=== PATIENT | male | born 1945 | race Caucasian/White ===

== ENCOUNTER 2021-11-30 12:30 | Inpatient (IN) | payer MEDICARE, BC, SELFPAY ==
[2021-11-30] VITALS (8 sets, daily range): BP systolic 134–170; BP diastolic 83–125; PULSE 84–121; RESP 18–20; TEMP 36.6; O2SAT 96–99; BMI 31.0; BMI 32.2
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
[2021-11-30] MEDS: MORPHINE 4 MG/ML INJ IVP (13:43)
[2021-11-30] MEDS: ONDANSETRON 2 MG/ML inj 4 MG IVP (13:43)
[2021-11-30] MEDS: 0.9 % SODIUM CHLORIDE 1000 ml 1,000 ML IV (13:44)
[2021-11-30 13:52] LABS: Basophils Percent Auto 0.1 % (0.0-3.0); Eosinophils Percent Auto 0.1 % (0.0-7.0); Hematocrit 48.2 % (37.0-53.0); Hemoglobin* 15.7 gm/dL (13.5-17.5); Immature Granulocytes Abs Auto 0.03 K/uL (0.00-0.30); Lymphocytes Percent Auto 4.1 % (20-44); Mean Corpuscular HGB Conc 33 gm/dL (32-36); Mean Corpuscular Hemoglobin 30 pg (26-34); Mean Corpuscular Volume 92 fL (80-100); Neutrophils Percent Auto 88.5 % (42.0-72.0); Platelet Count* 203 K/uL (140-440); RDW Coefficient of Variation % 13.4 % (11.5-15.5); Red Blood Count 5.22 m/uL (4.30-5.90); White Blood Count* 14.81 K/uL (4.50-11.00)
[2021-11-30 13:54] LABS: Slide Review Reflex No
[2021-11-30 14:05] LABS: Albumin* 4.9 g/dL (3.3-5.0); Chloride* 96 mmol/L (96-114)
[2021-11-30 14:06] LABS: Potassium* 3.9 mmol/L (3.6-5.1); Sodium* 137 mmol/L (135-149)
[2021-11-30 14:08] LABS: Amylase* 101 U/L (18-89)
[2021-11-30 14:09] LABS: Alanine Aminotransferase* 27 U/L (4-50); Alkaline Phosphatase* 113 U/L (40-150); Aspartate Amino Transferase* 38 U/L (12-35); Bilirubin Total* 1.8 mg/dL (0.1-1.5); Blood Urea Nitrogen* 20 mg/dL (7-30); Calcium* 8.8 mg/dL (8.4-10.6); Carbon Dioxide* 27 mmol/L (20-32); Creatinine* 0.8 mg/dL (0.5-1.5); Estimated Glomerular Filt Rate 91 ml/min; Glucose* 126 mg/dL (60-115); Lipase* 55 U/L (23-300); Total Protein* 8.6 g/dL (6.0-8.3)
[2021-11-30 14:11] LABS: C Reactive Protein* 1.2 mg/dL (0.5-1.0)
--- NOTE | 2021-11-30 14:17 | CRLHL7_ITS ---
For Patients: As a result of the 21st Century Cures Act, medical imaging exams and procedure reports are released immediately into your electronic medical record. You may view this report before your referring provider. If you have questions, please contact your health care provider. 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 Technique: Volumetric multidetector CT images of the chest, abdomen, and pelvis were obtained after the administration of intravenous contrast. 117 cc Isovue 370 low osmolar intravenous contrast Comparison: None available. FINDINGS: CHEST The thoracic inlet is unremarkable. The thyroid gland is within normal limits. The thoracic aorta is nonaneurysmal. There is no filling defect to suggest pulmonary embolus. There is no mediastinal, hilar, or axillary adenopathy. There is a markedly elevated right hemidiaphragm with right basilar pleural effusion with [id number] bronchial thickening of the lower lobe bronchi with basilar atelectasis and parenchymal scar. There is no other dense consolidation or pneumothorax. The thoracic osseus structures are intact without fracture, lytic, or blastic lesion. The thoracic vertebral body heights are grossly maintained with moderate degenerative disc disease change in flowing osteophyte formation. There is demonstration of somewhat lytic appearance of the posterior aspect of the T7 vertebral body. ABDOMEN AND PELVIS The liver is mildly enlarged with minimal hepatic steatosis and heterogeneous attenuation. The spleen is normal in attenuation and size. The gallbladder demonstrates calcified gallstones within the gallbladder lumen. There is no intrahepatic or common ductal dilatation. There is a duodenal diverticulum arising from the 1st portion of the duodenum. The pancreas is normal in enhancement without significant atrophy. The adrenal glands are unremarkable without evidence of adenoma. Cystic changes of the right kidney are appreciated otherwise there is preserved corticomedullary differentiation without evidence of obstructive uropathy. There is a moderate diffuse amount of intracolonic stool. There is moderate distal colonic diverticulosis. The appendix is unremarkable without significant inflammatory change. The abdominal aorta is nonaneurysmal with no significant atherosclerotic disease. There is a diminutive appearing bladder with mild nonspecific bladder wall thickening. There is moderate prostatomegaly. There is no pathologically enlarged epigastric, mesenteric, retroperitoneal, or pelvic sidewall lymph node. The anterior abdominal wall is grossly intact without significant hernias. There is no free air or free fluid. Old traumatic changes of the right superior inferior pubic rami appreciated. Moderate degenerative changes of the bilateral hips and sacroiliac joints. The lumbar vertebral body heights are grossly maintained with endplate Schmorl`s defects and minimal anterolisthesis of L4 on L5. There is moderate to severe degenerative disc disease with disc height loss and marginal osteophyte formation. There is severe facet arthrosis. There is minimal levocurvature of the AP alignment. Impression: 1. Markedly elevated right hemidiaphragm with basilar atelectasis and minimal pleural fluid. There is likely minimal parenchymal scar without dense consolidation or effusion. 2. There is demonstration of multiple calcified gallstones within the gallbladder with somewhat heterogeneous attenuation of the liver likely representing hepatic steatosis and cholelithiasis. 3. Moderate to severe stool seen throughout the colon with distal colonic diverticulosis without evidence of diverticulitis. 4. Moderate to severe degenerative changes of the thoracolumbar spine with demonstration of a lytic focus within the T7 vertebral body. Consider additional follow-up with MRI of the thoracic spine if there is concern for developing metastatic focus. No other significant lytic lesions are appreciated. Please note that all CT scans at this facility use dose modulation, iterative reconstruction, and/or weight-based dosing when appropriate to reduce radiation dose to as low as reasonably achievable. Dictated by Collin De Paz MD @ 11/30/2021 4:01:18 PM (Electronically Signed)
[2021-11-30 14:59] LABS: Appearance Urine Clear (Clear); Bilirubin Urine Negative (Negative); Blood Urine Negative (Negative); Color Urine Yellow (Yellow); Glucose Urine Negative (Negative); Ketones Urine Negative (Negative); Leukocyte Esterase Urine Negative (Negative); Nitrite Urine Negative (Negative); Protein Urine 2+ (Negative); Specific Gravity Urine >= 1.030 (1.000-1.030); Urobilinogen Urine 0.2 (0.2-1.0)
[2021-11-30 15:24] LABS: Bacteria Urine Few; RBC Urine 0-2 (0-2); WBC Urine 0-2 (0-5)
--- NOTE | 2021-11-30 16:38 | CRLHL7_ITS ---
For Patients: As a result of the Century Cures Act, medical imaging exams and procedure reports are released immediately into your electronic medical record. You may view this report before your referring provider. If you have questions, please contact your health care provider. INDICATION: Gallstones. TECHNIQUE: Ultrasound abdomen limited. COMPARISON: CT of the abdomen and pelvis from the same day. FINDINGS: Gallbladder: Contains multiple large, partially calcified stones. There is a focal area of somewhat fusiform wall thickening in the fundus measuring 1.7 by 0.9 x 2.7 cm. This portion of the wall demonstrates internal vascular flow. There is a small amount of pericholecystic fluid. Common bile duct: 6 mm. IMPRESSION: Cholelithiasis without convincing evidence for cholecystitis. 2.7 cm fusiform area of gallbladder wall thickening with internal vascular flow. No definite CT correlate. A gallbladder mass/malignancy cannot be entirely excluded. Recommend MRI for further evaluation or short interval follow-up with ultrasound to evaluate for persistence/interval change. Dictated by Tonio Buckner MD @ 11/30/2021 5:46:34 PM (Electronically Signed)
[2021-11-30 16:53] LABS: Bilirubin Direct* 0.4 mg/dL (0.0-0.5)
[2021-11-30] MEDS: HYDROmorphone 0.5 mg/0.5 ml inj IVP (18:35)
--- NOTE | 2021-11-30 19:15 | ED.NURSE ---
pt swabbed for covid
[2021-11-30 19:53] LABS: SARS PCR* Negative SARS-CoV-2 (Negative)
[2021-11-30] MEDS: PIPERACILLIN/TAZOBACTAM 3.375 GM in 0.9 % SODIUM CHLORIDE Mini-bag 100 ML IVPB (19:59)
[2021-11-30 20:01] LABS: HCO3 VBG 28 mmol/L (21-28); PCO2 VBG 46 mmHG (40-50); PO2 VBG 43.5 mmHG (25-47); pH VBG 7.401 (7.32-7.43)
--- NOTE | 2021-11-30 20:54 | ED.NURSE ---
report given, pt transferring to room 256 via wheelchair with belongings.
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
[2021-11-30 23:03] LABS: Prothrombin Time 14.9 Seconds
[2021-11-30 23:22] LABS: NT Pro B Type NatriureticPept* 1330 PG/mL (0-450)
[2021-11-30 23:25] LABS: Troponin I* 0.04 ng/mL (0.01-0.04)
[2021-11-30 23:29] LABS: Procalcitonin* 0.34 ng/mL (<0.50)
--- NOTE | 2021-11-30 23:42 | PC.NURSE ---
Shift Note: Pt a/o and able to verbalize needs. Moving independently throughout room. Currently rates pain 2/10 to abdomen. 5/10 to neck/low back. Pt wears cervical collar regularly to manage his spinal stenosis per his report. BP's hypertensive. EKG= A-fib with RVR, HR as high as 121 but mostly 95-105 BPM. Orthostatics obtained and tele= A-fib at this time. Pt sipping clears and will be NPO at midnight. Karen at bedside and plans to arrive around 7am tomorrow morning.
[2021-11-30] MEDS: 5 % DEXTROSE IN LAC RINGER'S 1,000 ML 125 ML IV (23:48)
[2021-12-01] VITALS (9 sets, daily range): BP systolic 121–149; BP diastolic 76–99; PULSE 82–98; RESP 12–18; TEMP 36.5–37.3; O2SAT 90–96
--- NOTE | 2021-12-01 | CRLHL7_ITS ---
For Patients: As a result of the Century Cures Act, medical imaging exams and procedure reports are released immediately into your electronic medical record. You may view this report before your referring provider. If you have questions, please contact your health care provider. Indication: Thoracic lesion evaluation. Technique: Multiplanar, multisequence MRI of the thoracic spine was performed without and with the use of 15 cc Dotarem intravenous contrast. Comparison: CT chest abdomen pelvis 11/30/2021. Findings: The thoracic vertebral body heights are maintained without evidence of fracture. Mild multilevel disc height loss and desiccation. No significant spondylolisthesis. Lesion identified within the T7 vertebral body demonstrates intrinsic T1 hyperintensity with fat suppression and is compatible with a hemangioma. There is no discrete T1 hypointense marrow infiltrating process identified. No abnormal enhancement. No abnormal cord signal. Mild multilevel spondylosis, with small disc protrusions at the T7-8, T8-9 and T10-11 levels. No overt evidence of spinal canal or neuroforaminal compromise throughout the thoracic spine. Partially visualized at least moderate spondylosis of the cervical spine. Small right pleural effusion. Cholelithiasis. Impression: 1. 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 No findings to suggest metastases within the thoracic spine. 2. Mild multilevel spondylosis. 3. No abnormal cord signal. Dictated by Khang Esparza MD @ 12/01/2021 12:57:45 PM (Electronically Signed)
--- NOTE | 2021-12-01 | CRLHL7_ITS ---
For Patients: As a result of the Century Cures Act, medical imaging exams and procedure reports are released immediately into your electronic medical record. You may view this report before your referring provider. If you have questions, please contact your health care provider. Indication: Acute cholecystitis. History of diaphragmatic hernia. Technique: MRI and MRCP of the abdomen without IV contrast. Comparison: Abdominal ultrasound 11/30/2021. CT chest, abdomen, pelvis 11/30/2021. Findings: Marked elevation of the right hemidiaphragm. Non cirrhotic configuration of liver. No significant hepatic steatosis. The unenhanced spleen and adrenal glands are normal in appearance. The gallbladder is located posterior to the liver and contains a few large gallstones, one of which is located in the gallbladder neck. There is lentiform T2 intermediate signal along the wall of the gallbladder fundus which could represent focal wall thickening or adherent sludge (series 7, image 15). This is incompletely characterized without IV contrast. Small amount of free fluid about the gallbladder and liver suggesting inflammation. No intra or extrahepatic bile duct dilation. The common bile duct measures up to 5 mm in diameter. No intraductal filling defects identified. Mild diffuse pancreatic parenchymal atrophy. There appears to be pancreatic divisum morphology. No dilation of the pancreatic duct. 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 No hydronephrosis. Right renal cyst. No bowel dilation. Duodenal diverticulum. Colonic diverticulosis. Small amount of free fluid in the right paracolic gutter. No lymphadenopathy. Tiny right pleural effusion. Impression: 1. Few large gallstones, one of which is located in the gallbladder neck. Small amount of free fluid about the gallbladder and liver could be due to gallbladder inflammation. 2. Lentiform T2 intermediate signal along the wall of the gallbladder fundus is indeterminate but could represent focal wall thickening or adherent sludge. 3. No biliary dilation or intraductal filling defects. 4. 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 Consider MRI follow-up in 1 year to ensure stability. Incidentally noted pancreatic divisum morphology. Dictated by Amita Keith MD @ 12/01/2021 10:40:59 AM (Electronically Signed)
[2021-12-01] MEDS: ACETAMINOPHEN 325 MG TABLET PO ×2 (00:12→16:30)
[2021-12-01] MEDS: PIPERACILLIN/TAZOBACTAM 3.375 GM in 0.9 % SODIUM CHLORIDE Mini-bag 100 ML IVPB ×4 (00:30→18:55)
[2021-12-01] MEDS: HYDROmorphone 0.5 mg/0.5 ml inj IVP ×5 (03:38→23:03)
--- NOTE | 2021-12-01 06:06 | PC.NURSE ---
Addendum entered by Lyndsey Burris RN 12/01/21 06:53: pt states he typically takes two 325mg Aspirins a night for back pain, pt had requested this at - MD updated - opted for Tylenol d/t pos surgery. Original Note: : pt pleasant and cooperative. SBA to assist with IV pole. Pt seems to have anxiety, asking several questions regarding pain mgmt, abx, afib, and pos surgery. All questions answered appropriately and pt very appreciative of cares. Pain in abd increased to a 5/10, pt stating the Tylenol didn?t offer much relief, 0.5mg Dilaudid administered with relief. Tele = Afib. HR 80s-105. O2 88-92 when asleep.
[2021-12-01] MEDS: 0.9 % SODIUM CHLORIDE 250 ml IV (06:14)
[2021-12-01 06:33] LABS: Hematocrit 44.9 % (37.0-53.0); Hemoglobin* 14.5 gm/dL (13.5-17.5); Mean Corpuscular HGB Conc 32 gm/dL (32-36); Mean Corpuscular Hemoglobin 30 pg (26-34); Mean Corpuscular Volume 94 fL (80-100); Platelet Count* 181 K/uL (140-440); Red Blood Count 4.79 m/uL (4.30-5.90); White Blood Count* 14.24 K/uL (4.50-11.00)
[2021-12-01 06:34] LABS: HCO3 VBG 31 mmol/L (21-28); PCO2 VBG 57 mmHG (40-50); PO2 VBG 32.3 mmHG (25-47); pH VBG 7.346 (7.32-7.43)
[2021-12-01 06:38] LABS: Slide Review Reflex No
[2021-12-01 07:19] LABS: Albumin* 4.1 g/dL (3.3-5.0); Chloride* 99 mmol/L (96-114); Sodium* 136 mmol/L (135-149)
[2021-12-01 07:21] LABS: Amylase* 76 U/L (18-89); Creatinine* 0.9 mg/dL (0.5-1.5); Estimated Glomerular Filt Rate 87 ml/min
[2021-12-01 07:22] LABS: Alanine Aminotransferase* 27 U/L (4-50); Alkaline Phosphatase* 96 U/L (40-150); Aspartate Amino Transferase* 38 U/L (12-35); Bilirubin Total* 2.5 mg/dL (0.1-1.5); Blood Urea Nitrogen* 17 mg/dL (7-30); Calcium* 8.1 mg/dL (8.4-10.6); Carbon Dioxide* 28 mmol/L (20-32); Gamma Glutamyl Transpeptidase* 55 U/L (8-55); Glucose* 126 mg/dL (60-115); Lipase* 30 U/L (23-300); Magnesium* 1.9 mg/dL (1.5-2.6); Total Protein* 7.1 g/dL (6.0-8.3)
[2021-12-01 07:25] LABS: C Reactive Protein* 6.6 mg/dL (0.5-1.0)
[2021-12-01] MEDS: DOCUSATE SODIUM 100 MG CAPSULE PO (10:04)
[2021-12-01] MEDS: 5 % DEXTROSE IN LAC RINGER'S 1,000 ML 125 ML IV ×2 (10:05→23:32)
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
[2021-12-01 13:24] LABS: Bilirubin Direct* 0.4 mg/dL (0.0-0.5)
--- NOTE | 2021-12-01 13:52 | PC.NURSE ---
End of shift report: Patient is up with stand by assist to the bathroom. Patient is alert and oriented but does fall asleep during conversations when IV dilaudid is onboard. Encouraged patient to take Tylenol inbetween but patient refused this as it does nothing for him. Prefers IV Dilaudid for abdominal pain. Patient had MRI of abdomen and thoracic spine today. Patient also had a bedside echo for new onset of afib in the ER yesterday. Patient continues to be in afib but rate controlled. PIV in left AC is patent. Offered to change IV to a different spot but patient refused and will try and keep arm straight. Dr. Monreal from surgery consulted for surgery but as of now we will continue IV antibiotics and attempt to transfer to a tertiary center for surgery. Patient is pleasant, has a lot of valid questions. Urine is dark and concentrated. Fluids running at 125ml/hr. Patient felt that he was not emptying bladder and a post void bladder scan revealed 5cc. MD was updated on this and will continue to do strict I&Os. Vital signs within normal limits but does dip into the 80s for sats when sleeping. Last BM was yesterday per patient but CT suggests that he has stool in his colon. Docusate sodium was given this morning. R side lower lung sounds are absent due to hx of right diaphragm hernia, otherwise clear to auscultate. TEDs and SCDs are on. Discoloration in lower extremities due to venous insufficiency.
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
[2021-12-01 21:38] LABS: RBC Urine 0-2 (0-2); Squamous Epithelial Cell Urine Few (None-Few); WBC Urine 0-2 (0-5)
[2021-12-01 21:39] LABS: Uric Acid Crystals Urine Many
--- NOTE | 2021-12-01 22:38 | PC.NURSE ---
End of Shift: Patient pleasant and cooperative. Patient vitally stable, right lower lobe diminished, O2 sats in low 90's, BS WNL, IV running D5LR at 125. Patient NPO taking in ice chips. Patient urinated x2 this shift and no success with BM. Patient rates pain at most 4/10, tylenol and 0.5mg of Dilaudid given once. Patient SBA to toilet. Patient reported burning with urination, UA collected.
[2021-12-02] VITALS (10 sets, daily range): BP systolic 125–139; BP diastolic 79–99; PULSE 78–94; RESP 16–20; TEMP 36.5–36.7; O2SAT 93–99
[2021-12-02] MEDS: PIPERACILLIN/TAZOBACTAM 3.375 GM in 0.9 % SODIUM CHLORIDE Mini-bag 100 ML IVPB ×4 (00:56→18:54)
[2021-12-02] MEDS: HYDROmorphone 0.5 mg/0.5 ml inj IVP (03:06)
--- NOTE | 2021-12-02 06:17 | PC.NURSE ---
[id number]: patient SBA, pain well controlled with PRN meds NPO with ice chips. no c/o nausea.
[2021-12-02 06:45] LABS: HCO3 VBG 33 mmol/L (21-28); PO2 VBG 25.3 mmHG (25-47); pH VBG 7.313 (7.32-7.43)
[2021-12-02 06:50] LABS: Hematocrit 44.2 % (37.0-53.0); Hemoglobin* 14.2 gm/dL (13.5-17.5); Mean Corpuscular HGB Conc 32 gm/dL (32-36); Mean Corpuscular Hemoglobin 31 pg (26-34); Mean Corpuscular Volume 95 fL (80-100); Platelet Count* 162 K/uL (140-440); Red Blood Count 4.66 m/uL (4.30-5.90); White Blood Count* 12.53 K/uL (4.50-11.00)
[2021-12-02 06:51] LABS: PCO2 VBG 65 mmHG (40-50)
[2021-12-02] MEDS: 0.9 % SODIUM CHLORIDE 250 ml IV (06:55)
[2021-12-02 06:57] LABS: Slide Review Reflex No
[2021-12-02 07:38] LABS: Chloride* 99 mmol/L (96-114)
[2021-12-02 07:39] LABS: Sodium* 138 mmol/L (135-149)
[2021-12-02 07:41] LABS: Creatinine* 0.9 mg/dL (0.5-1.5); Estimated Glomerular Filt Rate 87 ml/min
[2021-12-02 07:42] LABS: Alanine Aminotransferase* 25 U/L (4-50); Alkaline Phosphatase* 96 U/L (40-150); Aspartate Amino Transferase* 34 U/L (12-35); Bilirubin Total* 2.4 mg/dL (0.1-1.5); Blood Urea Nitrogen* 19 mg/dL (7-30); Calcium* 8.1 mg/dL (8.4-10.6); Carbon Dioxide* 31 mmol/L (20-32); Gamma Glutamyl Transpeptidase* 58 U/L (8-55); Glucose* 124 mg/dL (60-115); Total Protein* 7.2 g/dL (6.0-8.3)
[2021-12-02 08:04] LABS: C Reactive Protein* 16.3 mg/dL (0.5-1.0)
--- NOTE | 2021-12-02 09:21 | PM.GSPN ---
Subjective Subjective Date Seen: 12/02/21 Interval history: Patient is doing better today. He stretched out his IV Dilaudid. He denies any nausea vomiting. He has been passing gas but no bowel movement. Exam Narrative: Exam Narrative: Abdomen is soft, not distended, minimally tender in the posterior right superior flank. No peritoneal signs. Const: Vital Signs, click to edit/add: Vital Signs - 24 hr 12/01/21 10:44 12/01/21 13:03 12/01/21 15:00 Temperature 98.0 F Pulse Rate 84 Pulse Rate [Left A pical] 98 96 Respiratory Rate 16 14 Blood Pressure [Le ft Arm] Blood Pressure [Ri ght Arm] 121/76 Pulse Oximetry 91 Oxygen Delivery Me thod Room Air Oxygen Flow Rate 12/01/21 15:00 12/01/21 18:00 12/01/21 19:00 Temperature 99.1 F 98.6 F Pulse Rate 86 Pulse Rate [Left A pical] 96 84 Respiratory Rate 14 12 Blood Pressure [Le ft Arm] 149/99 H 130/88 Blood Pressure [Ri ght Arm] Pulse Oximetry 92 90 Oxygen Delivery Me thod Room Air Room Air Oxygen Flow Rate 12/01/21 21:48 12/01/21 23:00 12/01/21 23:00 Temperature 98 F Pulse Rate Pulse Rate [Left A pical] 89 89 Respiratory Rate 12 12 Blood Pressure [Le ft Arm] 128/89 Blood Pressure [Ri ght Arm] Pulse Oximetry 90 96 Oxygen Delivery Me thod Nasal Cannula Oxygen Flow Rate 1 12/02/21 01:32 12/02/21 03:00 12/02/21 07:30 Temperature 98 F Pulse Rate 94 85 Pulse Rate [Left A pical] 89 Respiratory Rate 16 Blood Pressure [Le ft Arm] 138/88 Blood Pressure [Ri ght Arm] Pulse Oximetry 93 Oxygen Delivery Me thod Room Air Oxygen Flow Rate Progress Note: A&P Assessment and plan (1) Cholelithiasis: Status: Acute Assessment and Plan: 76-year-old male admitted to the hospital with abdominal pain that is due to symptomatic cholelithiasis and most likely acute cholecystitis. We managing this patient with conservative approach since he is not able to get his gallbladder out at our hospital. Patient is doing well. His WBC decreased to 12 today. We will continue antibiotics. We will advance his diet to clears and see how he tolerates it. Will also place him on laxatives. Will transition him to p.o. pain medication.
[2021-12-02] MEDS: DOCUSATE SODIUM 100 MG CAPSULE PO ×2 (10:16→16:48)
[2021-12-02] MEDS: polyethylene glycoL 3350 17 GM PACK PO (10:16)
[2021-12-02] MEDS: 5 % DEXTROSE IN LAC RINGER'S 1,000 ML 125 ML IV ×3 (10:19→22:55)
[2021-12-02 13:38] LABS: Bilirubin Direct* 0.6 mg/dL (0.0-0.5)
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
[2021-12-03] VITALS (9 sets, daily range): BP systolic 120–148; BP diastolic 75–102; PULSE 83–96; RESP 20; TEMP 36.6–37; O2SAT 92–94
[2021-12-03] MEDS: PIPERACILLIN/TAZOBACTAM 3.375 GM in 0.9 % SODIUM CHLORIDE Mini-bag 100 ML IVPB ×4 (01:06→17:40)
[2021-12-03] MEDS: HYDROmorphone 0.5 mg/0.5 ml inj IVP (02:29)
--- NOTE | 2021-12-03 06:07 | PC.NURSE ---
[id number]: Patient cooperative with cares and talkative. Rates pain 2-4/10. PRN Tylenol 3 x2 and Dilaudid x1 administered for relief. Passing gas and belching. Tolerating clears. Denies N/V. BS active. Patients TEDS from home removed at [facility] per patient request.
[2021-12-03] MEDS: 0.9 % SODIUM CHLORIDE 250 ml IV (06:35)
[2021-12-03 06:55] LABS: HCO3 VBG 33 mmol/L (21-28); PCO2 VBG 59 mmHG (40-50); PO2 VBG 31.4 mmHG (25-47); pH VBG 7.358 (7.32-7.43)
[2021-12-03 07:07] LABS: Hemoglobin* 12.9 gm/dL (13.5-17.5); Mean Corpuscular HGB Conc 32 gm/dL (32-36); Mean Corpuscular Hemoglobin 30 pg (26-34); Mean Corpuscular Volume 96 fL (80-100); Platelet Count* 163 K/uL (140-440); Red Blood Count 4.28 m/uL (4.30-5.90); White Blood Count* 9.81 K/uL (4.50-11.00)
[2021-12-03 07:09] LABS: Slide Review Reflex No
[2021-12-03 07:19] LABS: Albumin* 3.6 g/dL (3.3-5.0); Chloride* 99 mmol/L (96-114); Sodium* 138 mmol/L (135-149)
[2021-12-03 07:20] LABS: Potassium* 3.9 mmol/L (3.6-5.1)
[2021-12-03 07:22] LABS: Bilirubin Total* 2.5 mg/dL (0.1-1.5); Carbon Dioxide* 31 mmol/L (20-32); Creatinine* 0.8 mg/dL (0.5-1.5); Estimated Glomerular Filt Rate 91 ml/min
[2021-12-03 07:23] LABS: Alanine Aminotransferase* 25 U/L (4-50); Alkaline Phosphatase* 108 U/L (40-150); Aspartate Amino Transferase* 35 U/L (12-35); Blood Urea Nitrogen* 15 mg/dL (7-30); Calcium* 7.7 mg/dL (8.4-10.6); Gamma Glutamyl Transpeptidase* 73 U/L (8-55); Glucose* 119 mg/dL (60-115); Total Protein* 6.6 g/dL (6.0-8.3)
[2021-12-03] MEDS: 5 % DEXTROSE IN LAC RINGER'S 1,000 ML 125 ML IV (07:24)
[2021-12-03 07:42] LABS: C Reactive Protein* 13.2 mg/dL (0.5-1.0)
--- NOTE | 2021-12-03 07:53 | PM.GSPN ---
Subjective Subjective Date Seen: 12/03/21 Interval history: Patient is doing okay. He took Tylenol 3 several times with some relief but required 1 dose of IV Dilaudid. He denies any nausea vomiting. He tolerated clears. He is passing gas but no bowel movements. Exam Narrative: Exam Narrative: Abdomen: Soft, not distended, some mild tenderness to palpation in the right posterior flank where his pain has been the entire time. No peritoneal signs. Const: Vital Signs, click to edit/add: Vital Signs - 24 hr 12/02/21 08:00 12/02/21 08:00 12/02/21 11:59 Temperature 97.9 F 98.1 F Pulse Rate Pulse Rate [Left A pical] 94 94 94 Respiratory Rate 16 16 16 Blood Pressure [Le ft Arm] Blood Pressure [Ri ght Arm] 128/79 128/79 Pulse Oximetry 95 96 Oxygen Delivery Me thod Room Air Room Air Oxygen Flow Rate 12/02/21 15:00 12/02/21 15:00 12/02/21 15:00 Temperature Pulse Rate 83 Pulse Rate [Left A pical] 92 92 Respiratory Rate 20 20 Blood Pressure [Le ft Arm] 125/83 Blood Pressure [Ri ght Arm] Pulse Oximetry 96 Oxygen Delivery Me thod Room Air Oxygen Flow Rate 12/02/21 19:00 12/02/21 21:00 12/02/21 22:28 Temperature 97.7 F Pulse Rate Pulse Rate [Left A pical] 78 Respiratory Rate 20 20 Blood Pressure [Le ft Arm] 132/86 Blood Pressure [Ri ght Arm] 128/79 Pulse Oximetry 95 95 Oxygen Delivery Me thod Room Air Nasal Can nula Oxygen Flow Rate 1.0 12/02/21 23:00 12/02/21 23:00 12/03/21 03:00 Temperature 97.9 F 97.9 F Pulse Rate 94 Pulse Rate [Left A pical] 83 83 Respiratory Rate 20 20 Blood Pressure [Le ft Arm] 139/99 H 127/89 Blood Pressure [Ri ght Arm] Pulse Oximetry 99 94 Oxygen Delivery Me thod Nasal Cannula Room Air Oxygen Flow Rate 1.0 12/02/21 23:00 12/03/21 07:03 Temperature Pulse Rate 84 Pulse Rate [Left A pical] Respiratory Rate Blood Pressure [Le ft Arm] Blood Pressure [Ri ght Arm] Pulse Oximetry 94 Oxygen Delivery Me thod Oxygen Flow Rate Progress Note: A&P Assessment and plan (1) Cholelithiasis and cholecystitis without obstruction: Status: Acute Assessment and Plan: 76-year-old male admitted to the hospital with symptomatic cholelithiasis and possible acute cholecystitis. Overall patient is doing well with conservative management. Patient can advance to regular diet today. We will switch him to Percocet since Tylenol 3 did not address his pain well. Patient is against taking Norman because it caused urinary retention. I did discuss with the patient that any narcotic can cause urinary retention however patient is willing to try. If patient is tolerating regular diet, I would discharge him home with a referral to hepatobiliary surgery next week to discuss laparoscopic cholecystectomy. I would discharge him home on Augmentin for 10 days.
[2021-12-03] MEDS: polyethylene glycoL 3350 17 GM PACK PO (09:25)
[2021-12-03] MEDS: DOCUSATE SODIUM 100 MG CAPSULE PO (09:26)
[2021-12-03] MEDS: MAGNESIUM HYDROXIDE 30 ML ORAL.SUSP PO (09:26)
[2021-12-03] MEDS: OxyCODONE/APAP 5-325 TABLET PO ×2 (12:14→17:39)
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
[2021-12-03] MEDS: APIXABAN 5 MG TABLET PO (19:52)
== END 2021-12-03 19:58 | disposition home or self-care (01) | DRG 445 ==
LOC: ED 13:27 → MEDSURG 19:51
PROVIDERS: Family Medicine; Internal Medicine; Admitting Provider Family Medicine; Emergency Provider Family Medicine; Visit Provider Family Medicine
DX: K80.00 Calculus of gallbladder with acute cholecystitis without obstruction (principal); E87.29 Other acidosis; K44.9 Diaphragmatic hernia without obstruction or gangrene; K86.89 Other specified diseases of pancreas; D18.09 Hemangioma of other sites; I48.91 Unspecified atrial fibrillation; E66.9 Obesity, unspecified; Z68.32 Body mass index [BMI] 32.0-32.9, adult; I10 Essential (primary) hypertension; M48.061 Spinal stenosis, lumbar region without neurogenic claudication; K76.0 Fatty (change of) liver, not elsewhere classified; M51.35 Other intervertebral disc degeneration, thoracolumbar region
CPT/HCPCS: 36415; 51798; 71260; 72157; 74177; 74181; 76705; 80053; 81001; 81015; 82150; 82248; 82803; 82977; 83690; 83735; 83880; 84145; 84484; 85025; 85027; 85610; 86140; 87040; 87086; 87635; 93005; 93306; 94761; 99284; 99285; G0378; A9270; A9575; J1170; J2270; J2405; J2543; J7030; J7050; Q9967

== ENCOUNTER 2023-11-09 12:37 | Outpatient (CLI) | payer MEDICARE, BC, SELFPAY | END 2023-11-09 12:38 | disposition home or self-care (01) | PROVIDERS: Visit Provider Nurse Practitioner Family | DX: I89.0 Lymphedema, not elsewhere classified (principal) | CPT/HCPCS: G0463 ==